=== PATIENT | female | born 1965 | race American Indian/Alaskan Native ===

== ENCOUNTER 2017-09-23 18:26 | Emergency (ER) | payer SELFPAY ==
[2017-09-23 18:57] LABS: Basophils % (Auto) 0.1 % (0.0-1.8); Eosinophils % (Auto) 0.5 % (0.0-4.3); Hematocrit 39.8 % (30.3-42.9); Hemoglobin 13.6 gm/dl (10.1-14.3); Lymphocytes # (Auto) 1.7 K/mm3 (1.2-5.4); Lymphocytes % (Auto) 19.8 % (13.4-35.0); Mean Corpuscular HGB Conc 34 % (30-34); Mean Corpuscular Hemoglobin 30 pg (28-32); Mean Corpuscular Volume 89 fl (79-97); Monocytes # (Auto) 0.7 K/mm3 (0.0-0.8); Monocytes % (Auto) 8.9 % (0.0-7.3); Platelet Count 180 K/mm3 (140-440); Red Blood Count 4.49 M/mm3 (3.65-5.03); Red Cell Distribution Width 14.5 % (13.2-15.2)
[2017-09-23 19:30] LABS: Alanine Aminotransferase 10 units/L (7-56); Albumin 3.6 g/dL (3.9-5); BUN/Creatinine Ratio 11; Blood Urea Nitrogen 8 mg/dL (7-17); Calcium 9.2 mg/dL (8.4-10.2); Hemolysis Index 0
[2017-09-23 20:04] LABS: Bacteria,Urine 1+ /HPF (Negative); Bilirubin,Urine NEG (Negative); Blood,Urine LG (Negative); Color,Urine Amber (Yellow); Mucus,Urine 3+ /HPF
--- NOTE | 2017-09-23 20:28 | XRay Report ---
FINAL REPORT EXAM: XR CHEST ROUTINE 2V HISTORY: cough with fever TECHNIQUE: PA and lateral views of the chest PRIORS: None. FINDINGS: Lines, tubes, and devices: N/A Lungs and pleura: Trachea is normal in position. There is an alveolar infiltrate on the lateral view in the posterior lung base. This is difficult to visualized on the frontal view but is probably in the left lower lobe. There is no evidence for pleural effusion, vascular congestion, or pneumothorax. Cardiomediastinal silhouette: Cardiac and mediastinal silhouettes are unremarkable. Other: Bony structures are intact. IMPRESSION: Left basilar infiltrate posteriorly
[2017-09-23 20:41] VITALS: BP 115/78
== END 2017-09-23 22:52 | disposition left against medical advice (07) ==
LOC: ED 18:26
DX: M79.1 Myalgia (principal); Z53.21 Procedure and treatment not carried out due to patient leaving prior to being seen by health care provider
CPT/HCPCS: 36415; 71046; 80053; 81001; 85025

== ENCOUNTER 2017-09-24 08:51 | Emergency (ER) | payer OTHER ==
[2017-09-24 08:59] VITALS: BP 120/72
--- NOTE | 2017-09-24 09:22 | Emergency Department Report ---
ED General Adult HPI - General Chief complaint: Upper Respiratory Infection Stated complaint: BODY PAIN/TAE Time Seen by Provider: 09/24/17 09:12 Source: patient Mode of arrival: Ambulatory Limitations: No Limitations - History of Present Illness Initial comments: Patient is 52 years old female with no significant past medical history. Patient presented to the ER complaining of cough, productive with greenish sputum for the last 15 days. Patient stated she also has some nausea but no vomiting. No fever but chills. Patient denied any shortness of breath, chest pain or other symptoms. - Related Data Previous Rx's Medication Instructions Recorded Last Taken Type Doxycycline Hyclate [Doxycycline 100 mg PO Q12HR #14 tab 07/21/15 Unknown Rx Hyclate TAB] Promethazine /Codeine 5 ml PO Q6H PRN #90 ml 07/21/15 Unknown Rx [Phenergan/Codeine 6.25-10 mg/5Ml] guaiFENesin [Mucinex] 600 mg PO Q6HR #20 tab.er.12h 07/21/15 Unknown Rx Allergies Allergy/AdvReac Type Severity Reaction Status Date / Time Penicillins Allergy Itching Verified 09/24/17 08:56 ED Review of Systems ROS: Stated complaint: BODY PAIN/TAE Other details as noted in HPI Comment: All other systems reviewed and negative Constitutional: chills. denies: fever ENT: congestion Respiratory: cough. denies: orthopnea, shortness of breath, SOB with exertion, wheezing Gastrointestinal: nausea, diarrhea. denies: abdominal pain, vomiting, constipation, hematemesis Neurological: denies: headache, weakness, numbness, paresthesias ED Past Medical Hx - Past Medical History Previous Medical History?: No Hx HIV: Yes - Surgical History Additional Surgical History: hysterectomy, - Social History Smoking Status: Current Every Day Smoker Substance Use Type: Alcohol - Medications Home Medications: Home Medications Medication Instructions Recorded Confirmed Last Taken Type Doxycycline Hyclate [Doxycycline 100 mg PO Q12HR #14 tab 07/21/15 Unknown Rx Hyclate TAB] Promethazine /Codeine 5 ml PO Q6H PRN #90 ml 07/21/15 Unknown Rx [Phenergan/Codeine 6.25-10 mg/5Ml] guaiFENesin [Mucinex] 600 mg PO Q6HR #20 tab.er.12h 07/21/15 Unknown Rx ED Physical Exam - General Limitations: No Limitations General appearance: alert, in no apparent distress - Head Head exam: Present: atraumatic, normocephalic, normal inspection - Eye Eye exam: Present: normal appearance - ENT ENT exam: Present: normal exam, normal orophraynx, mucous membranes moist - Respiratory Respiratory exam: Present: normal lung sounds bilaterally, rales (left lower lobe). Absent: respiratory distress, wheezes, rhonchi, stridor, chest wall tenderness, accessory muscle use, decreased breath sounds, prolonged expiratory - Cardiovascular Cardiovascular Exam: Present: regular rate, bradycardia - GI/Abdominal GI/Abdominal exam: Present: soft, normal bowel sounds. Absent: distended, tenderness, guarding, rebound, rigid, organomegaly, mass, bruit, pulsatile mass - Extremities Exam Extremities exam: Present: normal inspection, full ROM, normal capillary refill - Neurological Exam Neurological exam: Present: alert, oriented X3, CN II-XII intact, normal gait - Skin Skin exam: Present: warm, intact, normal color ED Course Vital Signs 09/24/17 08:56 Temperature 97.8 F Pulse Rate 58 L Respiratory 16 Rate Blood Pressure 120/72 O2 Sat by Pulse 98 Oximetry ED Medical Decision Making - Radiology Data Radiology results: report reviewed Referring Physician: BENITO BRANDT Patient Name: YUNIOR WILKINSON Date of : 1965 Sex: Female Report Date: 2017-09-23 Report Status: Finalized Findings [address] [address] XRay Report Signed Patient: YUNIOR WILKINSON MR#: [id number] : 1965 Acct:[id number] Age/Sex: 52 / F ADM Date: 09/23/17 Loc: ED Attending Dr: Ordering Physician: BENITO BRANDT MD Date of Service: 09/23/17 Procedure(s): XR chest routine 2V Accession Number(s): [id number] cc: BENITO BRANDT MD Fluoro Time In Minutes: FINAL REPORT EXAM: XR CHEST ROUTINE 2V HISTORY: cough with fever TECHNIQUE: PA and lateral views of the chest PRIORS: None. FINDINGS: Lines, tubes, and devices: N/A Lungs and pleura: Trachea is normal in position. There is an alveolar infiltrate on the lateral view in the posterior lung base. This is difficult to visualized on the frontal view but is probably in the left lower lobe. There is no evidence for pleural effusion, vascular congestion, or pneumothorax. Cardiomediastinal silhouette: Cardiac and mediastinal silhouettes are unremarkable. Other: Bony structures are intact. IMPRESSION: Left basilar infiltrate posteriorly Transcribed By: [facility] Dictated By: NORMA AMATO MD Electronically Authenticated By: NORMA AMATO MD Signed Date/Time: 09/23/172022 DD/ 22 TD/TT: 09/23/172022 - Medical Decision Making Patient was seen here yesterday, I reviewed her labs and x-ray from yesterday. X-ray showed left lower lobe infiltrate consistent with pneumonia. Critical care attestation.: If time is entered above; I have spent that time in minutes in the direct care of this critically ill patient, excluding procedure time. ED Disposition Clinical Impression: Left lower lobe pneumonia Disposition: DC- TO HOME OR SELFCARE Is pt being admited?: No Condition: Stable Instructions: Bacterial Pneumonia (ED) Referrals: [facility] [Provider Group] - 3-5 Days
== END 2017-09-24 09:27 | disposition home or self-care (01) ==
LOC: ED 08:51
DX: J18.1 Lobar pneumonia, unspecified organism (principal); F17.200 Nicotine dependence, unspecified, uncomplicated; Z90.710 Acquired absence of both cervix and uterus; Z88.0 Allergy status to penicillin
CPT/HCPCS: 99282